=== PATIENT | female | born 1985 | race Native Hawaiian/Other Pacific Islander ===

== ENCOUNTER 2019-12-30 16:56 | Observation (INO) | payer OTHER ==
[~2019-12-30] VITALS: Ht 167.6 cm; Wt 103.1 kg
[2019-12-30 17:00] VITALS: BP 105/60; TEMP 98.4; Ht 167.6 cm; Wt 103.1 kg
[2019-12-30 18:37] LABS: PLATELET COUNT 225 K/uL (152-353)
[2019-12-30 19:46] LABS: POTASSIUM 3.2 mmol/L (3.6-5.2); SODIUM 137 mmol/L (136-145)
[2019-12-31 04:00] VITALS: BP 105/60; TEMP 98.4
[2019-12-31 08:00] VITALS: BP 113/62; TEMP 98.7
[2019-12-31 11:47] LABS: POTASSIUM 3.9 mmol/L (3.6-5.2)
[2019-12-31 12:00] VITALS: BP 121/78; TEMP 98.3
[2019-12-31 13:25] LABS: PLATELET COUNT 190 K/uL (152-353)
[2019-12-31 16:00] VITALS: BP 112/76; TEMP 98.1
[2019-12-31] MEDS ORDERED: ADDERALL30 MG PO (16:01)
[2019-12-31 20:00] VITALS: BP 117/71; TEMP 98.2
[2020-01-01] VITALS: BP 118/70; TEMP 98.3
[2020-01-01 01:03] LABS: POTASSIUM 3.5 mmol/L (3.6-5.2)
[2020-01-01 04:00] VITALS: BP 110/60; TEMP 98.2
[2020-01-01 08:00] VITALS: BP 104/55; TEMP 98.4
[2020-01-01 15:16] LABS: PLATELET COUNT 170 K/uL (152-353)
[2020-01-01 15:30] LABS: POTASSIUM 3.9 mmol/L (3.6-5.2)
[2020-01-01 16:00] VITALS: BP 131/77; TEMP 98.1
[2020-01-01 19:48] VITALS: BP 99/50; TEMP 98.3
[2020-01-01 23:43] VITALS: BP 103/45; TEMP 97.8
[2020-01-02 04:00] VITALS: BP 94/39; TEMP 98.6
[2020-01-02 05:10] LABS: PLATELET COUNT 173 K/uL (152-353)
[2020-01-02 05:38] LABS: POTASSIUM 4.3 mmol/L (3.6-5.2)
[2020-01-02 08:00] VITALS: BP 107/60; TEMP 97.8
[2020-01-02 12:00] VITALS: BP 118/60; TEMP 98.1
[2020-01-02 16:00] VITALS: BP 107/66; TEMP 98.3
== END 2020-01-02 17:46 | disposition home or self-care (01) ==
LOC: MED/SURG 16:56
PROVIDERS: ADMIT Family Medicine; ATTEND Family Medicine
DX: B17.10 Acute hepatitis C without hepatic coma (principal); G47.09 Other insomnia; F41.8 Other specified anxiety disorders; E66.8 Other obesity; Z68.35 Body mass index [BMI] 35.0-35.9, adult; E86.0 Dehydration; R82.4 Acetonuria; R10.11 Right upper quadrant pain; E87.8 Other disorders of electrolyte and fluid balance, not elsewhere classified; F10.10 Alcohol abuse, uncomplicated; R51.9 Headache, unspecified
CPT/HCPCS: 36415; 80048; 80053; 80074; 81000; 82150; 82550; 83690; 83735; 84100; 84484; 85027; 87040; 87522; 87635; 87902; 93005; 96365; 96366; 96367; 96374; 96375; 99220; A9537; G0378; G0379; J1885; J2060; J3475; J3480; U0003

== ENCOUNTER 2020-01-03 13:21 | Outpatient (CLI) | payer OTHER ==
[~2020-01-03 13:21] MED LIST: ADDERALL30 MG PO
== END 2020-01-03 19:02 | disposition home or self-care (01) ==
LOC: LAB 13:21
PROVIDERS: ATTEND Family Medicine
DX: K81.9 Cholecystitis, unspecified (principal)
CPT/HCPCS: 80061

== ENCOUNTER 2020-03-07 07:47 | Outpatient (CLI) | payer OTHER | END 2020-03-07 18:54 | disposition home or self-care (01) | LOC: US 07:47 | PROVIDERS: ATTEND Internal Medicine Gastroenterology | DX: B18.2 Chronic viral hepatitis C (principal) ==

== ENCOUNTER 2020-07-06 11:11 | Outpatient (CLI) | payer OTHER | END 2020-07-06 20:21 | disposition home or self-care (01) | LOC: RAD 11:11 | PROVIDERS: ATTEND Nurse Practitioner Primary Care | DX: M79.671 Pain in right foot (principal) ==

== ENCOUNTER 2021-09-08 14:19 | Outpatient (CLI) | payer OTHER ==
[~2021-09-08] VITALS: Ht 167.6 cm; Wt 111.1 kg
== END 2021-09-08 21:37 | disposition home or self-care (01) ==
LOC: INF 14:19
PROVIDERS: ATTEND Family Medicine
DX: Z23 Encounter for immunization (principal); U07.1 COVID-19
CPT/HCPCS: 96374; Q0222

== ENCOUNTER 2021-12-17 20:05 | Emergency (ER) | payer OTHER ==
[~2021-12-17] VITALS: Ht 167.6 cm; Wt 111.1 kg
[2021-12-17 20:08] VITALS: BP 143/93; TEMP 98.3
== END 2021-12-17 20:55 | disposition home or self-care (01) ==
LOC: ED 20:05
PROC: 0HQHXZZ Repair Right Upper Leg Skin, External Approach (ICD-10-PCS; principal; 2021-12-17)
DX: S71.121A Laceration with foreign body, right thigh, initial encounter (principal); S70.11XA Contusion of right thigh, initial encounter; W26.0XXA Contact with knife, initial encounter; Y92.89 Other specified places as the place of occurrence of the external cause
CPT/HCPCS: 90715; 96372; 99283